=== PATIENT | male | born 1995 | race Caucasian/White ===

== ENCOUNTER 2017-03-28 09:00 | Emergency (ER) | payer MEDICAID ==
[2017-03-28 10:41] VITALS: BP 135/72
== END 2017-03-28 10:41 | disposition home or self-care (01) ==
LOC: ED 09:00
DX: N47.1 Phimosis (principal); E11.9 Type 2 diabetes mellitus without complications; Z79.84 Long term (current) use of oral hypoglycemic drugs

== ENCOUNTER 2018-09-29 03:42 | Inpatient (IN) | payer OTHER ==
[~2018-09-29] VITALS: Ht 170.2 cm; Wt 104.6 kg
[2018-09-29 03:47] VITALS: Ht 170.2 cm; Wt 104.6 kg
[2018-09-29 05:16] LABS: BASOPHIL % 0.3 % (0-2); PLATELET COUNT 267 x10^3mcL (130-400); RED CELL DISTRIBUTION WIDTH 11.8 % (11.5-14.5)
[2018-09-29 05:42] LABS: CARBON DIOXIDE 19.1 mmol/L (21-32); CHLORIDE SERUM 103 mmol/L (98-107); GFR1 > 60 mL/min; GLUCOSE SERUM 369 mg/dL (74-106); POTASSIUM SERUM 4.4 mmol/L (3.5-5.1); SODIUM SERUM 139 mmol/L (136-145)
[2018-09-29 05:52] LABS: FREE T4 1.02 ng/dL (0.76-1.46)
[2018-09-29 06:01] LABS: UA SPECIFIC GRAVITY >=1.030 (1.005-1.035); microscopic required? YES; urine erythrocyte NEGATIVE (NEGATIVE)
[2018-09-29 06:32] LABS: AMPHETAMINE QUAL UR POSITIVE (See below)
[2018-09-29 06:38] VITALS: BP 146/76
[2018-09-29 07:57] LABS: MAGNESIUM 1.6 mg/dL (1.8-2.4); PHOSPHOROUS 5.3 mg/dL (2.5-4.9)
[2018-09-29 09:03] VITALS: BP 140/68
[2018-09-29 09:06] LABS: CHOLESTEROL/HDL RATIO 5.2
[2018-09-29 12:44] VITALS: BP 120/97
[2018-09-29 17:18] VITALS: BP 146/95
[2018-09-29 21:14] VITALS: BP 111/75
[2018-09-30 05:19] VITALS: BP 123/73
[2018-09-30 07:05] LABS: BASOPHIL % 0.3 % (0-2); PLATELET COUNT 216 x10^3mcL (130-400); RED CELL DISTRIBUTION WIDTH 12.6 % (11.5-14.5)
[2018-09-30 07:29] LABS: CALCIUM 8.7 mg/dL (8.5-10.1); CARBON DIOXIDE 28.4 mmol/L (21-32); CHLORIDE SERUM 104 mmol/L (98-107); CREATININE SERUM 0.7 mg/dL (0.7-1.3); GFR1 > 60 mL/min; GLUCOSE SERUM 217 mg/dL (74-106); MAGNESIUM 1.9 mg/dL (1.8-2.4); PHOSPHOROUS 3.7 mg/dL (2.5-4.9); POTASSIUM SERUM 3.8 mmol/L (3.5-5.1); SODIUM SERUM 139 mmol/L (136-145)
[2018-09-30 08:10] VITALS: BP 133/90
[2018-09-30] MEDS ORDERED: GLUCOPHAGE XR500 MG PO (11:40)
[2018-09-30] MEDS ORDERED: LEVEMIR100 U/M1 SC (11:42)
[2018-09-30] MEDS ORDERED: HUMALOG100 U/ML SC (12:00)
[2018-09-30 12:02] VITALS: BP 133/90
== END 2018-09-30 12:35 | disposition home or self-care (01) | DRG 816 ==
LOC: ED 03:42 → DU 06:03
PROVIDERS: Emergency Medicine; Internal Medicine
DX: T40.5X1A Poisoning by cocaine, accidental (unintentional), initial encounter (principal); N17.0 Acute kidney failure with tubular necrosis; G92 Toxic encephalopathy; E11.65 Type 2 diabetes mellitus with hyperglycemia; E87.2 Acidosis; F15.10 Other stimulant abuse, uncomplicated; F14.10 Cocaine abuse, uncomplicated; E02 Subclinical iodine-deficiency hypothyroidism; F10.10 Alcohol abuse, uncomplicated; R07.9 Chest pain, unspecified; Y90.9 Presence of alcohol in blood, level not specified; D72.829 Elevated white blood cell count, unspecified; Z91.14 Patient's other noncompliance with medication regimen; Z83.3 Family history of diabetes mellitus; Y92.89 Other specified places as the place of occurrence of the external cause; Z79.899 Other long term (current) drug therapy
CPT/HCPCS: 82962; 83880; 84439; G0480; J2060; J7030

== ENCOUNTER 2018-12-08 19:32 | Emergency (ER) | payer OTHER ==
[~2018-12-08] VITALS: Ht 180.3 cm; Wt 98.0 kg
[~2018-12-08 19:32] MED LIST: GLUCOPHAGE XR500 MG PO; HUMALOG100 U/ML SC; LEVEMIR100 U/M1 SC
[2018-12-08 19:37] VITALS: BP 144/99; Ht 180.3 cm; Wt 98.0 kg
== END 2018-12-08 22:06 | disposition left against medical advice (07) ==
LOC: ED 19:32
DX: Z53.21 Procedure and treatment not carried out due to patient leaving prior to being seen by health care provider (principal)

== ENCOUNTER 2019-02-15 11:10 | Emergency (ER) | payer OTHER ==
[~2019-02-15] VITALS: Ht 180.3 cm; Wt 106.6 kg
[2019-02-15 11:15] VITALS: Ht 180.3 cm; Wt 106.6 kg
[2019-02-15 15:45] VITALS: BP 134/80
== END 2019-02-15 15:45 | disposition home or self-care (01) ==
LOC: ED 11:10
DX: S86.911A Strain of unspecified muscle(s) and tendon(s) at lower leg level, right leg, initial encounter (principal); S39.012A Strain of muscle, fascia and tendon of lower back, initial encounter; X58.XXXA Exposure to other specified factors, initial encounter; Y93.89 Activity, other specified; Y92.89 Other specified places as the place of occurrence of the external cause; Y99.8 Other external cause status
CPT/HCPCS: 82962; J1885; Q0092

== ENCOUNTER 2019-04-25 13:05 | Emergency (ER) | payer OTHER ==
[~2019-04-25] VITALS: Ht 180.3 cm; Wt 99.3 kg
[2019-04-25 13:11] VITALS: Ht 180.3 cm; Wt 99.3 kg
[2019-04-25 13:28] LABS: BASOPHIL % 0.3 % (0-2); PLATELET COUNT 236 x10^3mcL (130-400); RED CELL DISTRIBUTION WIDTH 12.8 % (11.5-14.5)
[2019-04-25 13:37] LABS: CALCIUM 9.8 mg/dL (8.5-10.1); CARBON DIOXIDE 28.6 mmol/L (21-32); CHLORIDE SERUM 100 mmol/L (98-107); CREATININE SERUM 0.9 mg/dL (0.7-1.3); GFR1 > 60 mL/min; GLUCOSE SERUM 417 mg/dL (74-106); POTASSIUM SERUM 4.4 mmol/L (3.5-5.1); SODIUM SERUM 141 mmol/L (136-145)
[2019-04-25 13:41] LABS: ALKALINE PHOSPHATASE 93 U/L (46-116); ALT/SGPT 82 U/L (16-63); AST/SGOT 21 U/L (15-37); BILIRUBIN TOTAL 1.06 mg/dL (0.20-1.00); LIPASE 214 IU/L (73-393); TOTAL PROTEIN, SERUM 7.9 g/dL (6.4-8.2)
[2019-04-25 17:31] VITALS: BP 144/80
== END 2019-04-25 17:31 | disposition home or self-care (01) ==
LOC: ED 13:05
DX: R10.13 Epigastric pain (principal); E11.9 Type 2 diabetes mellitus without complications
CPT/HCPCS: 36415

== ENCOUNTER 2020-04-30 19:59 | Emergency (ER) | payer OTHER ==
[~2020-04-30] VITALS: Ht 180.3 cm; Wt 102.1 kg
[2020-04-30 20:06] VITALS: Ht 180.3 cm; Wt 102.1 kg
[2020-04-30 20:25] VITALS: BP 139/78
== END 2020-04-30 20:25 | disposition home or self-care (01) ==
LOC: ED 19:59
DX: B35.6 Tinea cruris (principal); E11.9 Type 2 diabetes mellitus without complications
CPT/HCPCS: 82962